=== PATIENT | male | born 1985 | race Caucasian/White ===

== ENCOUNTER 2024-04-06 04:52 | Emergency (ER) | payer OTHER ==
[2024-04-06 05:00] VITALS: BP 147/87; PULSE 107; RESP 18; TEMP 99; BMI 25.0
[2024-04-06] MEDS: LACTATED RINGERS SOLUTION 1000 ML INFUS.BAG IV ONE (05:34)
[2024-04-06 06:06] LABS: BASO % 0.3 % (0-2.0); HEMATOCRIT 42.1 % (35.4-49); HEMOGLOBIN 14.8 GM/dL (11.7-16.9); LYMPH % 9.2 % (8-40); MCH 32.1 pg (25.7-33.7); MCHC 35.1 g/dl (32.0-35.9); MEAN CELL VOLUME 91.3 fl (80-96); MEAN PLT VOLUME 7.6 fl (7.5-11.1); MONO % 6.8 % (3.8-10.2); NEUT % 83.7 % (42.8-82.8); PLATELET COUNT 289 10^3/uL (134-434); RBC 4.61 M/mm3 (4.00-5.60); RDW 12.4 % (11.9-15.9); WHITE BLOOD COUNT 6.6 K/mm3 (4.0-10.0)
[2024-04-06 06:16] LABS: POTASSIUM 3.7 mmol/L (3.5-5.1)
[2024-04-06 06:18] LABS: ALBUMIN 4.1 g/dl (3.4-5.0); CALCIUM 9.2 mg/dL (8.5-10.1)
[2024-04-06 06:22] LABS: CREATININE 1.2 mg/dL (0.55-1.3)
[2024-04-06 06:23] LABS: BILIRUBIN,TOTAL 0.6 mg/dL (0.2-1); TOT PROT 7.1 g/dl (6.4-8.2)
== END 2024-04-06 06:39 | disposition home or self-care (01) ==
LOC: JER 04:52
DX: R06.02 Shortness of breath (principal)
CPT/HCPCS: 36415; 80053; 85025; 93005; 93010; 99284-25